=== PATIENT | male | born 1990 | race Caucasian/White ===

== ENCOUNTER 2017-03-02 20:51 | Emergency (ER) | payer OTHER ==
[2017-03-02 20:56] VITALS: RESP 16; TEMP 98.4
[2017-03-02] MEDS ORDERED: LET GEL TOPICAL 1 EA SYR TP ONE (21:07)
[2017-03-02 22:07] VITALS: BP 128/88; PULSE 82; O2SAT 96
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
== END 2017-03-02 22:40 | disposition home or self-care (01) ==
PROC: 0HQ1XZZ Repair Face Skin, External Approach (ICD-10-PCS; principal; 2017-03-02)
DX: S01.81XA Laceration without foreign body of other part of head, initial encounter (principal); S80.812A Abrasion, left lower leg, initial encounter; W22.8XXA Striking against or struck by other objects, initial encounter